=== PATIENT | female | born 1940 | race Caucasian/White ===

== ENCOUNTER → 2016-04-29 | Outpatient (CLI) | payer OTHER, MEDICARE | LOC: FIMAGING 13:10 | PROVIDERS: ATTEND Internal Medicine Endocrinology, Diabetes & Metabolism | DX: Z85.850 Personal history of malignant neoplasm of thyroid (principal) | CPT/HCPCS: 78018; A9528 ==

== ENCOUNTER → 2016-05-08 | Outpatient (CLI) | payer OTHER, MEDICARE | LOC: BMCIMAGING 07:32 | DX: Z12.31 Encounter for screening mammogram for malignant neoplasm of breast (principal) | CPT/HCPCS: G0202 ==

== ENCOUNTER → 2016-05-22 | Outpatient (CLI) | payer OTHER, MEDICARE | LOC: BMCIMAGING 12:48 | DX: R92.8 Other abnormal and inconclusive findings on diagnostic imaging of breast (principal) | CPT/HCPCS: G0206 ==

== ENCOUNTER → 2016-06-24 | Outpatient (CLI) | payer OTHER, MEDICARE ==
[~2016-06-24] MED LIST: IOPAMIDOL (ISOVUE-300) 100 ML BTL IV ONE
== END ==
LOC: FIMAGING 07:39
PROVIDERS: ATTEND Internal Medicine Endocrinology, Diabetes & Metabolism
DX: C73 Malignant neoplasm of thyroid gland (principal); R91.1 Solitary pulmonary nodule; N28.89 Other specified disorders of kidney and ureter; D18.03 Hemangioma of intra-abdominal structures; K44.9 Diaphragmatic hernia without obstruction or gangrene
CPT/HCPCS: 71260; Q9967

== ENCOUNTER → 2016-08-14 | Outpatient (CLI) | payer OTHER, MEDICARE ==
[~2016-08-14] MED LIST changes: +GADOBUTROL 10 ML VIAL IVP ONE; -IOPAMIDOL (ISOVUE-300) 100 ML BTL IV ONE
[2016-08-14 14:23] LABS: CREATININE 0.6 mg/dL (0.6-1.0); GLOMERULAR FILTRATION RATE > 60
== END ==
LOC: FIMAGING 13:36
PROVIDERS: ATTEND Specialist
DX: D17.71 Benign lipomatous neoplasm of kidney (principal); K44.9 Diaphragmatic hernia without obstruction or gangrene
CPT/HCPCS: 74183; A9585

== ENCOUNTER → 2017-01-25 | Day surgery (SDC) | payer OTHER, MEDICARE ==
[~2017-01-25] MED LIST changes: +ALTEPLASE 2 MG VIAL IVP PRN; +CEFAZOLIN 1 GM/DEXTROSE/50 ML BAG IV ONE; +DEXAMETHASONE 10 MG/ML VIAL IVP ONE; +DEXAMETHASONE 10 MG/ML VIAL ONE; +ETHYL ALCOHOL 98% 5 ML AMP MISC ONE; +FLUMAZENIL 0.5 MG/5 ML MDV IVP ONE; +FLUMAZENIL 0.5 MG/5 ML MDV IVP PRN; -GADOBUTROL 10 ML VIAL IVP ONE; +GLUCAGON HCL 1 MG VIAL IVP PRN; +HEPARIN 10,000 UNIT/10 ML MDV IVP PRN; +HEPARIN 10,000 UNIT/10 ML MDV ONE; +IOPAMIDOL (ISOVUE-300) 100 ML BTL ONE; +MEPERIDINE 25 MG/ML SYR IVP PRN; +MIDAZOLAM 2 MG/2 ML VIAL IVP PRN; +MIDAZOLAM 2 MG/2 ML VIAL ONE; +NALOXONE HCL 0.4 MG/ML INJ IVP PRN; +NALOXONE HCL 0.4 MG/ML INJ ONE; +NITROGLYCERIN/D5W 50 MG/250 ML BOTTLE IV ONE; +NS 1,000 ML IV SCH; +ONDANSETRON 4 MG/2 ML VIAL IVP ONE; +ONDANSETRON 4 MG/2 ML VIAL ONE; +PROTAMINE SULFATE 50 MG/5 ML VIAL IVP PRN; +SCOPOLAMINE HYDROBROMIDE 1 MG/3 DAYS PATCH TD ONE; +[UNRECOGNIZED DRUG - OTHER] MISC ONE; +ceFAZolin 2 GM/DEXTROSE 100 ML IV ONE; +fentaNYL 100 MCG/2 ML INJ IVP PRN; +fentaNYL 100 MCG/2 ML INJ ONE; +oxyCODONE IR 5 MG TAB PO PRN
[2017-01-25 08:11] VITALS: PULSE 81; RESP 16; TEMP 208.4
[2017-01-25 08:28] LABS: HEMATOCRIT 46.5 % (38.0-47.0)
[2017-01-25 08:40] LABS: CREATININE 0.6 mg/dL (0.6-1.0); GLOMERULAR FILTRATION RATE > 60
[2017-01-25 08:46] LABS: INR 0.96 (0.83-1.16); PROTIME(PATIENT) 12.7 SEC (12.0-15.0)
[2017-01-25 08:47] LABS: APTT 22.6 SEC (23.0-38.0)
--- NOTE | 2017-01-25 09:35 | PDGENHP ---
History & Physical Chief Complaint: Renal angiomyolipoma History of Present Illness: Asymptomatic 6 cm right renal angiomyolipoma incidentally discovered on CT chest, which was performed to follow-up thyroid CA (post-thyroidectomy December 2014). Referred by Dr. Radha Snell for embolization. Pertinent Past, Social, Family History: High pain tolerance. Tolerated resection of cranial menigioma well. Hypertension, controlled by lisinopril. Relevant Physical Exam: Pulses: Radial, femoral, popliteal, and PT pulses are all 4+ bilaterally. DP 4+ on right, 2+ on left. Cardiorespiratory Assessment: Heart: RRR, no murmur, 80 bpm. Lungs: Clear to auscultation.
--- NOTE | 2017-01-25 09:39 | PDPROPOC ---
Sedation Plan of Care Sedation Plan of Care: vital signs stable, mental status noted, patient educated of risks, benefits, alternatives, patient can tolerate sedation ASA Classification: ASA 2 Planned drugs: fentanyl, midazolam Mallampati Score: Class 3 Mallampati Reference Image: Patient passed 3-3-2 rule?: Yes
[2017-01-25 11:33] VITALS: O2SAT 97
[2017-01-25 12:17] VITALS: BP 115/62
--- NOTE | 2017-01-25 12:39 | PDRADPN ---
Radiology Procedure Note Date of Procedure: 01/25/17 Radiologist: Loi Plasencia Anesthesia: IV Sedation Pre-op Diagnosis: Right renal angiomyolipoma Post-op Diagnosis: Same Indication: 6 cm tumor Procedure: Superselective catheter embolization of right renal AML Finding(s): Superselective microcatheter embolization with 2.5 ml Absolute alcohol:Ethiodol (4:1) emulsion. Good angiographic results. Starclose right common femoral artery. Inf/Abcess present in the surg proc area at time of surgery?: No EBL: Minimal Complications: 0
== END | disposition home or self-care (01) ==
LOC: FIMAGING 07:28
PROVIDERS: ATTEND Radiology Diagnostic Radiology
PROC: 04L Lower Arteries, Occlusion (ICD-10-PCS; principal; 2017-01-25)
PROC: B4161ZZ Fluoroscopy of Right Renal Artery using Low Osmolar Contrast (ICD-10-PCS; principal; 2017-01-25)
DX: D30.01 Benign neoplasm of right kidney (principal); E89.0 Postprocedural hypothyroidism
CPT/HCPCS: 36253; 37243; 99152; 99153; C1769; C1894; C1760; J0690; J1100; J1644; J2250; J2310; J2405; J3010; Q9967

== ENCOUNTER → 2017-04-14 | Outpatient (CLI) | payer OTHER, MEDICARE | LOC: FIMAGING 09:59 | PROVIDERS: ATTEND Internal Medicine Endocrinology, Diabetes & Metabolism | DX: Z08 Encounter for follow-up examination after completed treatment for malignant neoplasm (principal); I89.9 Noninfective disorder of lymphatic vessels and lymph nodes, unspecified; Z85.850 Personal history of malignant neoplasm of thyroid ==

== ENCOUNTER → 2017-05-10 | Outpatient (CLI) | payer OTHER, MEDICARE | LOC: BMCIMAGING 08:46 | PROVIDERS: ATTEND Family Medicine | DX: Z12.31 Encounter for screening mammogram for malignant neoplasm of breast (principal) ==

== ENCOUNTER → 2018-02-25 | Outpatient (CLI) | payer OTHER, MEDICARE ==
[~2018-02-25] MED LIST changes: -ALTEPLASE 2 MG VIAL IVP PRN; -CEFAZOLIN 1 GM/DEXTROSE/50 ML BAG IV ONE; -DEXAMETHASONE 10 MG/ML VIAL IVP ONE; -DEXAMETHASONE 10 MG/ML VIAL ONE; -ETHYL ALCOHOL 98% 5 ML AMP MISC ONE; -FLUMAZENIL 0.5 MG/5 ML MDV IVP ONE; -FLUMAZENIL 0.5 MG/5 ML MDV IVP PRN; +GADOBUTROL 10 ML VIAL IVP ONE; -GLUCAGON HCL 1 MG VIAL IVP PRN; -HEPARIN 10,000 UNIT/10 ML MDV IVP PRN; -HEPARIN 10,000 UNIT/10 ML MDV ONE; -IOPAMIDOL (ISOVUE-300) 100 ML BTL ONE; -MEPERIDINE 25 MG/ML SYR IVP PRN; -MIDAZOLAM 2 MG/2 ML VIAL IVP PRN; -MIDAZOLAM 2 MG/2 ML VIAL ONE; -NALOXONE HCL 0.4 MG/ML INJ IVP PRN; -NALOXONE HCL 0.4 MG/ML INJ ONE; -NITROGLYCERIN/D5W 50 MG/250 ML BOTTLE IV ONE; -NS 1,000 ML IV SCH; -ONDANSETRON 4 MG/2 ML VIAL IVP ONE; -ONDANSETRON 4 MG/2 ML VIAL ONE; -PROTAMINE SULFATE 50 MG/5 ML VIAL IVP PRN; -SCOPOLAMINE HYDROBROMIDE 1 MG/3 DAYS PATCH TD ONE; -[UNRECOGNIZED DRUG - OTHER] MISC ONE; -ceFAZolin 2 GM/DEXTROSE 100 ML IV ONE; -fentaNYL 100 MCG/2 ML INJ IVP PRN; -fentaNYL 100 MCG/2 ML INJ ONE; -oxyCODONE IR 5 MG TAB PO PRN
== END ==
LOC: FIMAGING 15:31
DX: G31.9 Degenerative disease of nervous system, unspecified (principal); G93.89 Other specified disorders of brain; M31.6 Other giant cell arteritis
CPT/HCPCS: 70543; 70553; A9585; 82565-PO

== ENCOUNTER 2018-07-14 05:42 | Day surgery (SDC) | payer OTHER, MEDICARE ==
--- NOTE | 2018-07-13 12:51 | SOAPPROG ---
SOAP Progress Note Assessment/Plan: HISTORY AND PHYSICAL: Name ADEBAYO VILLAREAL (77yo, F) ID# [id number] 1940 [address] Dept[address] MAIN OFFICE Provider GEETA CALDWELL Insurance Med Primary: [place]) Insurance # : [id number] Med Secondary: A[employer] (MEDICARE SUPPLEMENT) Insurance # : [id number] Prescription: ORX - Member is eligible. details Chief Complaint Pt is here today for her left shoulder surgical discussion. Patient's Care Team Orthopedic Surgeon: TERESA MARTE MD: [id number], [place] [address], Ph [phone], Physical Therapist: [facility]: [address], [place] [address], , Patient's Pharmacies [phone] ([facility]): [address] [place] [phone], , Vitals 07/04/2018 10:38 am Ht: 5 ft 2 in Wt: 135 lbs BMI: 24.7 BP: 150/86 Pulse: 88 bpm Allergies Reviewed Allergies NKDA Medications Reviewed Medications brimonidine 0.2 % eye drops 04/14/18 filled [facility] DEPO-Medrol 40 mg/mL suspension for injection Take 40 mg by injection route. 01/04/18 administered TERESA MARTE MD erythromycin 5 mg/gram (0.5 %) eye ointment 03/01/18 filled [facility] levothyroxine 125 mcg tablet 07/01/18 filled [facility] lisinopril 10 mg tablet 04/11/18 filled [facility] meloxicam 7.5 mg tablet TAKE 1 TABLET BY MOUTH ONCE OR TWICE DAILY NEEDED FOR PAIN 10/21/17 renewed TERESA MARTE MD omeprazole 40 mg capsule,delayed release 04/12/18 filled [facility] oxyCODONE-acetaminophen 5 mg-325 mg tablet 03/01/18 filled [facility] predniSONE 20 mg tablet 04/12/18 filled [facility] predniSONE 5 mg tablet 04/26/18 filled [facility] raloxifene 60 mg tablet 04/28/18 filled [facility] traMADol 50 mg tablet 1 PO q 4-6 hours prn pain 02/18/18 prescribed Juaquin Ang M.D. Vaccines None recorded. Problems Reviewed Problems Osteoarthritis of glenohumeral joint - Onset: 01/04/2018, Left Shoulder pain - Onset: 01/04/2018, Left Family History Reviewed Family History Mother - Arthritis - Hypertensive disorder - Osteoporosis Social History Reviewed Social History Smoking Status: Never smoker Occupation: teacher Alcohol intake: Occasional Alcohol-years of use: 20 Caffeine intake: Occasional Exercise level: Moderate Hand Dominance: Right Education: Post Graduate Live alone or with others?: with others Surgical History Reviewed Surgical History Thyroid Surgery - 03/15/2012 Neurosurgery - 03/15/2005 [employer] History (not configured) Obstetric History None recorded. Past Pregnancies None recorded. Past Medical History Past Medical History not reviewed (last reviewed 05/11/2018) Cancer: Y Hypertension: Y Osteopenia: Y Screening None recorded. HPI This is a very pleasant 77 year old female with: - 07/2017 -- insidious onset of left lateral shoulder pain exacerbated by overhead movements - 07/19/17 -- left shoulder radiographs -- end-stage glenohumeral arthritis - 01/04/18 -- left shoulder glenohumeral injection (Dr. Marte) without symptomatic improvement - 02/16/18 -- left shoulder MRI -- severe osteoarthritis of the GH joint with partial tear of the supraspinatus -04/27/2018 -- repeat left shoulder GH injection without relief Patient presents today for follow-up for the left shoulder and to again discuss surgery for the left shoulder. Pain and severe limited ROM continue. Recently discontinued Prednisone in mid may as she does not have Giant Cell Arteritis that was previously thought by her eye doctor. Cleared for surgery. ROS ROS as noted in the HPI Physical Exam Patient is a 77-year-old female. Bilateral shoulder examination Inspection/palpation: Right: Normal resting posture. Left: Normal resting posture, + significant crepitus throughout exam Shoulder ROM (R / L / Normal) Forward flexion: 170 / 110 / 170 Abduction: 160 / 80 / 160 Extension: 40 / 40 / 40 Shoulder strength (R / L / Normal) Deltoid : 5/ 4 / 5 Biceps: 5/ 5 / 5 Shoulder sensory (R / L / Normal) Axillary: + / + / + Shoulder tests Stability tests OBriens: - / + / - Apprehension: - / - / - Relocation: - / - / - Jerk: - / - / - Rotator cuff tests Empty can: - / + / - Belly press: - / - / - Lift off : - / - / - Impingement tests Kwabena: - /+ / - Neer: - / - / - Cross-arm adduction: - / - / - Biceps test Speeds: - / - / - Yergason supination: - / - / - Assessment / Plan This is a very pleasant 77 year old female with: - 07/2017 -- insidious onset of left lateral shoulder pain exacerbated by overhead movement - 07/19/17 -- left shoulder radiographs -- end-stage glenohumeral arthritis - 01/04/18 -- left shoulder glenohumeral injection (Dr. Marte) without symptomatic improvement - 02/16/18 -- left shoulder MRI -- severe osteoarthritis of the GH joint with partial tear of the supraspinatus - 04/27/18 -- repeat left shoulder GH injection without symptomatic improvement For the left shoulder: - I have discussed with the patient the risks, benefits, alternatives and complications associated with non nonoperative (specifically, observation, oral and topical NSAIDs, repeat injection) and operative (specifically, left TSA, left LHB tenodesis, and left shoulder rotator cuff repair) forms of treatment - The patient fully understands the risks, benefits, alternatives, and complications associated with both forms of treatment and would like to proceed with surgery. - She has signed the informed consent form for surgery and surgery will be scheduled for the near future. 1. Osteoarthritis of glenohumeral joint - Left M19.012: Primary osteoarthritis, left shoulder Return to Office None recorded. Encounter Sign-Off Encounter signed-off by GEETA CALDWELL 07/13/18 12:51 ICD10 Worksheet Patient Problems: Problems Problem Status Onset S/P thyroidectomy Acute
[2018-07-14] MEDS ORDERED: LR 1,000 ML IV ONE (06:06)
[2018-07-14] MEDS ORDERED: ceFAZolin 2 GM/DEXTROSE 100 ML IV ONE (06:39)
--- NOTE | 2018-07-14 06:40 | PDHPUP ---
History & Physical Update H&P update statement: This history and physical update is based on an assessment of the patient which was completed after admission or registration (within 24 hours), but prior to the surgery/procedure. H&P update: H&P reviewed & patient examined
[2018-07-14] MEDS ORDERED: MIDAZOLAM 2 MG/2 ML VIAL IVP ONE (06:43)
--- NOTE | 2018-07-14 06:45 | PDANEPAE ---
ANE History of Present Illness 77 yo with left shoulder arthritis ANE Past Medical History - Cardiovascular History Hx Hypertension: Yes Hx Arrhythmias: No Hx Chest Pain: No Hx Coronary Artery / Peripheral Vascular Disease: No Hx CHF / Valvular Disease: No Hx Palpitations: No Cardiovascular History Comment: HTN - Pulmonary History Hx COPD: No Hx Asthma/Reactive Airway Disease: No Hx Recent Upper Respiratory Infection: No Hx Oxygen in Use at Home: No Hx Sleep Apnea: No Sleep Apnea Screening Result - Last Documented: Negative - Neurologic History Hx Cerebrovascular Accident: No Hx Seizures: No Hx Dementia: No Neurologic History Comment: MENINGIAL TUMOR REMOVAL 2006 - Endocrine History Hx Diabetes: No Endocrine History Comment: HYPOTHYROID. THYROIDECTOMY - Renal History Hx Renal Disorders: No Renal History Comment: ANGIOLIPOMA - EMBOLIZED 2016 - Liver History Hx Hepatic Disorders: No - Neurological & Psychiatric Hx Hx Neurological and Psychiatric Disorders: No - Cancer History Hx Cancer: No - Congenital Disorder History Hx Congenital Disorders: No - GI History Hx Gastrointestinal Disorders: No - Other Health History Other Health History: LIMITED ROM LT SHLDR. LT OPTICAL MENIGIOMA. OSTEOPOROSIS , ARTHRITIS - Chronic Pain History Chronic Pain: Yes (LT SHLDR) - Surgical History Prior Surgeries: REMVL ANGIOLIPOMA TUMOR 2006. HYSTERECTOMY. TONSILLECTOMY. thyroid removed 2014 ANE Review of Systems Review of systems is: negative Review of Systems: - Exercise capacity METS (RN): 4 METS ANE Patient History - Allergies Allergies/Adverse Reactions: No Known Allergies Allergy (Verified 01/22/17 15:45) - Home Medications Home medications: home medication list seen and reviewed Home Medications: Lisinopril [Zestril 10 mg (*)] 10 mg PO DAILY 12/18/14 [Last Taken 07/12/18] Multivitamins [Multivitamin (*)] 1 each PO DAILY 12/18/14 [Last Taken 1 Week Ago ~07/07/18] Raloxifene HCl [Evista] 60 mg PO DAILY 12/18/14 [Last Taken 07/13/18] Levothyroxine Sodium 125 mcg PO DAILY06 03/18/18 [Last Taken 07/14/18 05:00] - NPO status NPO Status: no food or drink >8 hours NPO Since - Liquids (Date): 07/13/18 NPO Since - Liquids (Time): 19:00 NPO Since - Solids (Date): 07/13/18 NPO Since - Solids (Time): 19:00 - Anes Hx Anes Hx: no prior problems - Smoking Hx Smoking Status: Never smoked - Family Anes Hx Family Hx Anesthesia Complications: NONE ANE Labs/Vital Signs - Vital Signs Blood Pressure: 154/93 Heart Rate: 76 Respiratory Rate: 18 O2 Sat (%): 96 Height: 154.94 cm Weight: 61.235 kg ANE Physical Exam - Airway Neck exam: FROM Mallampati Score: Class 1 Mouth exam: normal dental/mouth exam - Pulmonary Pulmonary: no respiratory distress - Cardiovascular Cardiovascular: regular rate and rhythym - ASA Status ASA Status: II ANE Anesthesia Plan Anesthesia Plan: general endotracheal anesthesia Regional Anesthesia: single shot NB
[2018-07-14] MEDS ORDERED: BACITRACIN 50,000 UNITS/10 ML SYR IRR ONE (06:46)
[2018-07-14] MEDS ORDERED: BUPIVACAINE/EPI 0.5% 30 ML SDV ONE (06:46)
[2018-07-14] MEDS ORDERED: POLYMYXIN B SULFATE 500,000 UNIT/10 ML SYR IRR ONE (06:46)
[2018-07-14] MEDS ORDERED: fentaNYL 100 MCG/2 ML INJ ONE (06:58)
[2018-07-14] MEDS ORDERED: PROPOFOL 200 MG/20 ML VIAL ONE ×2 (06:58→10:16)
[2018-07-14] MEDS ORDERED: LIDOCAINE 1% 300 MG/30 ML SDV ONE (07:23)
[2018-07-14] MEDS ORDERED: BUPIVACAINE 0.5% 30 ML SDV ONE (10:06)
[2018-07-14] MEDS ORDERED: NALOXONE HCL 0.4 MG/ML INJ IVP PRN (11:08)
[2018-07-14] MEDS ORDERED: PROMETHAZINE HCL 25 MG/ML INJ IVP PRN (11:08)
[2018-07-14] MEDS ORDERED: ONDANSETRON 4 MG/2 ML VIAL IVP PRN (11:08)
[2018-07-14] MEDS ORDERED: fentaNYL 100 MCG/2 ML INJ IVP PRN (11:08)
[2018-07-14] MEDS ORDERED: oxyCODONE IR 5 MG TAB PO PRN (11:08)
[2018-07-14] MEDS ORDERED: HYDROCODONE/APAP 5/325 TAB PO PRN (11:08)
[2018-07-14] MEDS ORDERED: HYDROGEN PEROXIDE 236 ML BOTTLE TP ONE (11:09)
--- NOTE | 2018-07-14 11:09 | POSTANESTH ---
Post Anesthetic Evaluation Cardiovascular Status: Normal, Stable Respiratory Status: Normal, Stable Level of Consciousness/Mental Status: Can Participate in Eval Pain Control: Adequate, Prn Tx Ordered Nausea/Vomiting Control: Adequate, Prn Tx Ordered Complications Possibly Related to Anesthesia: None Noted
[2018-07-14 12:50] VITALS: BP 117/65
--- NOTE | 2018-07-16 15:02 | GOP ---
[f rep st] OPERATIVE REPORT NAME: ADEBAYO VILLAREAL DATE OF SERVICE: 07/14/18 DATE OF : 1940 SURGEON: Juaquin Ang M.D. GEOMORPHOLOGIST: Nithya Sierra PA-C Mrs. Villegas assistance was medically necessary for patient positioning and the retraction of vital structures. ANESTHESIA: General / regional PREOPERATIVE DIAGNOSES: Left shoulder arthritis (ICD-10 code M13.819 - shoulder arthritis) Left shoulder partial thickness rotator cuff tear (ICD-10 code M75.110 incomplete rotator cuff tear) Left shoulder biceps tenosynovitis (ICD-10 code M75.20 bicipital tendinitis of shoulder) POSTOPERATIVE DIAGNOSES: Left shoulder arthritis (ICD-10 code M13.819 - shoulder arthritis) Left shoulder partial thickness rotator cuff tear (ICD-10 code M75.110 incomplete rotator cuff tear) Left shoulder biceps tenosynovitis (ICD-10 code M75.20 bicipital tendinitis of shoulder) OPERATIVE PROCEDURES: CPT code 61758 - Left total shoulder arthroplasty CPT code 61263 - Left shoulder biceps tenodesis CPT code 20795 - Left open rotator cuff repair, chronic ESTIMATED BLOOD LOSS: 15 ml COMPLICATIONS: None. IMPLANTS: Exactech equinoxe platform stem, 12 mm in diameter, 4.5-mm replicator plate, 38mm by 16mm head, Equinoxe all polyethylene glenoid, medium with alpha curvature, simplex HV bone cement BRIEF CLINICAL NOTE: This is a very pleasant 77 year old female with a significant history for left shoulder arthritis with a partial thickness rotator cuff tear and long head of biceps tendinitis. As such, I have discussed with the patient the risks, benefits, alternatives, and complications associated with both non-operative (specifically, observation, PT, NSAIDs, injections) and operative (specifically, left total shoulder arthroplasty with rotator cuff repair and long head of biceps tenodesis) forms of treatment. The patient fully understood the risks, benefits, alternatives, and complications associated with both forms of treatment and wished to proceed with operative intervention as outlined above. The patient has signed the informed consent form for surgery. OPERATIVE NOTE: On the day of surgery, all of the patient's questions were answered. The patient was transferred from the pre-operative holding area to the operating room, at which point a formal "time out" procedure was performed. The patient was identified by name, medical record number, social security number, and date of . The patient's left upper extremity was identified as the correct extremity for surgery, with the patients left shoulder being identified as the correct portion of that extremity for surgery. The anesthesia team administered preoperative antibiotics for prophylaxis. The patient was then transferred from the preoperative gurney onto the operating room table and was positioned in the beach chair position. The left upper extremity was then prepped and draped in the normal sterile fashion. A sterile marking pen was utilized to susanne out a standard delto-pectoral interval incision. A #15 blade was then used to incise through the skin. Meticulous hemostasis was obtained in the subcutaneous plane. The deltopectoral interval was then developed with careful dissection. The cephalic vein and the deltoid were retracted laterally, and the pectoralis major was retracted medially. The superior 1 cm of the pectoralis was released off of the proximal humerus. The long head of the biceps tendon was identified in the bicipital groove and was traced proximally into the rotator interval. The rotator interval was released and the long head of the biceps tendon was released off of the glenoid and tagged with a #2 Fiber Wire suture for later tenodesis. The subscapularis was then released off of the greater and lesser tuberosity and tagged with #2 Fiber Wire sutures for later repair. The humerus was then brought into extension and external rotation and an inferior capsular release was performed. Osteophytes were removed from the head-neck junction with a double action rongeur. The free-hand neck cutting guide was then applied to the anterior aspect of the humerus and the appropriate neck resection angle was marked with bovie cautery. A sagittal saw was then utilized to perform the neck cut. The head was then removed from the wound and measure on the back table at a diameter of 38 mm. The humeral canal was broached by hand starting with the 7mm reamer and increasing in 1mm increments up to a 12 mm reamer. The last reamer provided for excellent fit within the proximal humeral canal. The humeral canal was then broached incrementally up to the size of the last reamer. Twenty degrees of retroversion was maintained on the humeral side during broaching. A trial 12mm stem was then inserted into the proximal humerus and a stem protector was applied to protect the humerus during glenoid exposure. The humerus was retracted posteriorly with a Chau retractor to expose the glenoid. The glenoid labrum was excised with bovie cautery and the center point of the glenoid was marked with cross hairs. The ship pilot dispatcher drill for the modular glenoid reamer was then utilized to drill a ship pilot dispatcher hole in the center of the glenoid. The glenoid was then sequentially reamed up to a medium reamer. The drill guide for the all-polyethylene pegged glenoid component was applied to the reamed glenoid surface and the peripheral peg holes were drilled. The drill guide was then removed and the remaining surface of the reamed glenoid was further prepared by drilling a multitude of small holes. The glenoid was then copiously irrigated with sterile normal saline. A medium sized alpha curvature all polyethylene glenoid component was opened and placed onto the back table. One package of Simplex HV bone cement was opened, mixed, and poured into a Tumey syringe. The cement was then injected into the peg holes in the glenoid. The glenoid component was then inserted into the glenoid and impacted. All excess cement was removed from the wound and steady, gentle pressure was applied to the component until the cement was fully hardened. All glenoid retractors were carefully removed from the wound and the humerus was re- exposed. A 4.5-mm replicator plate trial was attached to the trial stem and a 38mm by 16mm-mm trial head was applied to the replicator plate. The shoulder was then reduced and brought through a full range of passive motion. Anterior-posterior translation and superior-inferior translation demonstrated excellent stability. Mrqfvxcoh-va-dzwleaif C-arm images were obtained and demonstrated excellent component positioning. All trial humeral components were then removed from the wound. A size 12-mm Exactech equinoxe primary stem was opened. Two sets of drill holes were then made along the anterior humeral metaphysis and two #2 Fiber wire sutures were then passed through these drill holes for later subscapularis repair. The final stem was inserted into the proximal humeral canal maintaining approximately 20 degrees of retroversion. A 4.5-mm replicator plate was then attached to the stem and oriented to provide for maximum coverage. The nut for the replicator plate was then finally tightened using the wrench and the counter-torque device. A 38mm by 16mm head component was then opened and applied to the replicator plate with the appropriate positioning to provide for maximum coverage. The head was then impacted onto the Yepez taper. The shoulder was then reduced and brought through a full range of motion. All range of motion testing demonstrated excellent stability. A wnjyadixl-os-vxaenvqi fluoroscopic image was obtained and demonstrated excellent component positioning. This image was printed and saved. The subscapularis was then repaired utilizing the two #2 Fiberwire sutures which had previously been placed through bone tunnels in the proximal humeral metaphysis. The long head of the biceps tendon was tenodesed to the undersurface of the pectoralis major utilizing a #2 Fiber wire. The entire wound was then copiously irrigated with sterile normal saline mixed with bacitracin and polymixin. The deep subcutaneous plane was re-approximated with 2-0 vicryl sutures. The deep dermal plane was re-approximated with 3-0 vicryl sutures and the skin was re-approximated with a running 4-0 monocryl subucuticular stitch. The skin was cleaned with sterile normal saline and dried. Dermabond was applied to the incision. A xeroform gauze dressing was then applied followed by a dry sterile dressing and an occlusive Tegaderm dressing. Once the dressing was completely in place, the patient was then reversed from anesthesia and transferred from the operating room table onto the post- operative gurney. The operative extremity was placed into a sling. The patient was transferred from the operating room to the post-anesthesia care unit in stable condition. POSTOPERATIVE PLAN: The patient will leave the current dressing in place and keep the operative extremity clean and dry. The patient will be strict non- weight-bearing on the operative side and will remain in the sling at all times. The patient will follow-up in the office in 2 weeks for a wound check and the initiation of shoulder ROM. /[id number]/MODL MTDD
== END 2018-07-14 13:05 | disposition home or self-care (01) ==
LOC: FSGY 05:42
PROVIDERS: ATTEND Orthopaedic Surgery Hand Surgery
PROC: BP1 Imaging, Non-Axial Upper Bones, Fluoroscopy (ICD-10-PCS; 2018-07-14)
PROC: 0RRK0J7 Replacement of Left Shoulder Joint with Synthetic Substitute, Glenoid Surface, Open Approach (ICD-10-PCS; principal; 2018-07-14 07:15)
PROC: 0LQ20ZZ Repair Left Shoulder Tendon, Open Approach (ICD-10-PCS; principal; 2018-07-14 07:15)
PROC: 0LM40ZZ Reattachment of Left Upper Arm Tendon, Open Approach (ICD-10-PCS; principal; 2018-07-14 07:15)
PROC: 0RRK0J6 Replacement of Left Shoulder Joint with Synthetic Substitute, Humeral Surface, Open Approach (ICD-10-PCS; principal; 2018-07-14 07:15)
DX: M19.012 Primary osteoarthritis, left shoulder (principal); M75.22 Bicipital tendinitis, left shoulder; M75.112 Incomplete rotator cuff tear or rupture of left shoulder, not specified as traumatic; M85.9 Disorder of bone density and structure, unspecified; I10 Essential (primary) hypertension; E03.9 Hypothyroidism, unspecified
CPT/HCPCS: C1713; J0690; J2250; J2704; J3010

== ENCOUNTER → 2018-08-16 | Outpatient (CLI) | payer OTHER, MEDICARE | LOC: BMCIMAGING 07:59 ==